=== PATIENT | female | born 2005 | race Caucasian/White ===

== ENCOUNTER 2024-03-30 22:58 | Emergency (ER) | payer SELFPAY ==
[~2024-03-30] VITALS: Ht 172.7 cm; Wt 68.2 kg
[2024-03-30 23:08] VITALS: BP 136/87; TEMP 98.3
[2024-03-31 00:20] VITALS: PULSE 80
== END 2024-03-31 00:20 | disposition home or self-care (01) ==
LOC: COL.ER 22:58
DX: S61.512A Laceration without foreign body of left wrist, initial encounter (principal); W31.2XXA Contact with powered woodworking and forming machines, initial encounter; Y92.009 Unspecified place in unspecified non-institutional (private) residence as the place of occurrence of the external cause